=== PATIENT | male | born 1950 | race Caucasian/White ===

== ENCOUNTER 2021-03-23 08:35 | Emergency (ER) | payer MEDICARE, OTHER ==
[2021-03-23] MEDS ORDERED: Sodium Chloride 0.9% 10 ML Syringe FLUSH PRN (08:58)
[2021-03-23] MEDS ORDERED: Sodium Chloride 0.9% 1,000 ML IV SCH (09:00)
--- NOTE | 2021-03-23 09:24 | EDM.PDOC ---
<Willie Coleman - Last Filed: 03/23/21 10:19> ED HPI GENERAL MEDICAL PROBLEM - General Chief Complaint: Respiratory Problem Stated Complaint: SOB Time Seen by Provider: 03/23/21 08:54 Source of Information: Reports: Patient History Limitations: Reports: No Limitations - History of Present Illness INITIAL COMMENTS - FREE TEXT/NARRATIVE: The patient presents with shortness of breath and swollen ankles. He said this started about a week ago. He has no chest pain. He denies any palpitations but his heart rate is in the 140s and it appears irregular. He has no fever, chills, cough, congestion, runny nose, abdominal pain, nausea or vomiting. He has a history of heart disease. He had a CABG. He said he has a history of hypertension and was on medication but he was able to come off of the medication. He said the shortness of breath would come and go but mostly was there over the past week. He has never had this happen before. Onset: Gradual Duration: Week(s): Severity: Moderate Improves with: Reports: None Worsens with: Reports: None Associated Symptoms: Reports: Shortness of Breath. Denies: Chest Pain, Cough, Fever/Chills, Headaches, Nausea/Vomiting - Related Data Allergies Allergy/AdvReac Type Severity Reaction Status Date / Time No Known Allergies Allergy Verified 03/23/21 08:47 Home Meds: Home Meds . [No Known Home Meds] 03/23/21 [History] ED ROS GENERAL - Review of Systems Review Of Systems: See Below Constitutional: Reports: No Symptoms HEENT: Reports: No Symptoms Respiratory: Reports: Shortness of Breath. Denies: Cough Cardiovascular: Reports: Edema. Denies: Chest Pain, Palpitations Endocrine: Reports: No Symptoms GI/Abdominal: Reports: No Symptoms : Reports: No Symptoms Musculoskeletal: Reports: No Symptoms ED EXAM, GENERAL - Physical Exam Exam: See Below Exam Limited By: No Limitations General Appearance: Alert, No Apparent Distress Ears: Normal External Exam Nose: Normal Inspection Head: Atraumatic, Normocephalic Neck: Normal Inspection Respiratory/Chest: No Respiratory Distress, Lungs Clear, Normal Breath Sounds Cardiovascular: No Murmur, Tachycardia, Irregularly Irregular, Other (ankle edema) GI/Abdominal: Soft, Non-Tender, No Organomegaly, No Mass Back Exam: Normal Inspection #1 Interpretation EKG Date: 03/23/21 Time: 08:42 Rhythm: A-Fib Rate (Beats/Min): 142 [place]: LAD-Left [place] Deviation P-Wave: Absent QRS: Normal ST-T: Normal QT: Prolonged Course - Re-Assessments/Exams Free Text/Narrative Re-Assessment/Exam: 03/23/21 09:27 I ordered an IV NS at 125mL/hr, cardizem 10mg IV bolus, then cardizem drip at 10mg/hr, EKG, CXR and labs. His EKG shows atrial fibrillation with no acute changes. 03/23/21 10:16 His CXR shows cardiomegaly. His WBC was slightly elevated at 9.33. His anion gap is elevated at 22. His creatinine is elevated at 2.7. His glucose is elevated at 135. His total bili is elevated at 2.1. His troponin is elevated at 0.292. His TSH is negative. 03/23/21 10:19 I called [facility] Funes and Dr Awad will be calling me back. It is change of shift. Dr Allen to take over. Departure - Departure Disposition: DC/Tfer to [facility] 02 Clinical Impression: Atrial fibrillation with RVR, Elevated troponin, Renal insufficiency - Discharge Information Referrals: PCP,None [Primary Care Provider] - Forms: ED Department Discharge Sepsis Event Note (ED) - Evaluation Sepsis Screening Result: No Definite Risk <Abhishek Allen - Last Filed: 03/23/21 11:44> Course - Vital Signs Last Recorded V/S: Last Vital Signs Temp 97.8 F 03/23/21 08:44 Pulse 155 H 03/23/21 08:44 Resp 16 03/23/21 08:44 BP 161/127 H 03/23/21 08:44 Pulse Ox 99 03/23/21 08:44 - Orders/Labs/Meds Orders: Active Orders 24 hr Category Date Time Status Cardiac Monitoring [RC] . DIRECTED Care 03/23/21 08:58 Active EKG Documentation Completion [RC] STAT Care 03/23/21 08:59 Active Peripheral IV Care [RC] . DIRECTED Care 03/23/21 08:59 Active TROPONIN I [CHEM] Stat Lab 03/23/21 11:29 Received Diltiazem [Cardizem] 100 mg Med 03/23/21 10:30 Active Sodium Chloride 0.9% [Normal Saline] 100 ml IV TITRATE Sodium Chloride 0.9% [Normal Saline] 1,000 ml Med 03/23/21 09:00 Active IV ASDIRECTED Sodium Chloride 0.9% [Saline Flush] Med 03/23/21 08:58 Active 10 ml FLUSH ASDIRECTED PRN Peripheral IV Insertion Adult [OM.PC] Stat Oth 03/23/21 08:58 Ordered Medication Orders Sodium Chloride (Normal Saline) 1,000 mls @ 125 mls/hr IV ASDIRECTED SUZAN Last Admin: 03/23/21 09:12 Dose: 125 mls/hr Documented by: ALTON Diltiazem HCl 100 mg/ Sodium (Chloride) 100 mls @ 10 mls/hr IV TITRATE SUZAN; Protocol Last Admin: 03/23/21 10:49 Dose: 10 mg/hr, 10 mls/hr Documented by: GAYLA Sodium Chloride (Sodium Chloride 0.9% 10 Ml Syringe) 10 ml FLUSH ASDIRECTED PRN PRN Reason: Keep Vein Open Last Admin: 03/23/21 09:12 Dose: 10 ml Documented by: ALTON Labs: Laboratory Tests 03/23/21 03/23/21 03/23/21 Range/Units 08:50 08:50 08:50 WBC 9.33 H (4.23-9.07) K/mm3 RBC 4.32 L (4.63-6.08) M/mm3 Hgb 14.0 (13.7-17.5) gm/dl Hct 40.9 (40.1-51.0) % MCV 94.7 H (79.0-92.2) fl MCH 32.4 H (25.7-32.2) pg MCHC 34.2 (32.2-35.5) g/dl RDW Std Deviation 45.5 H (35.1-43.9) fL Plt Count 138 L (163-337) K/mm3 MPV 10.3 (9.4-12.3) fl Neut % (Auto) 86.5 H (34.0-67.9) % Lymph % (Auto) 8.7 L (21.8-53.1) % [place] % (Auto) 4.4 L (5.3-12.2) % Eos % (Auto) 0 L (0.8-7.0) Baso % (Auto) 0.3 (0.1-1.2) % Neut # (Auto) 8.07 H (1.78-5.38) K/mm3 Lymph # (Auto) 0.81 L (1.32-3.57) K/mm3 [place] # (Auto) 0.41 (0.30-0.82) K/mm3 Eos # (Auto) 0.00 L (0.04-0.54) K/mm3 Baso # (Auto) 0.03 (0.01-0.08) K/mm3 Manual Slide Review Normal smear Sodium 138 (136-145) mEq/L Potassium 4.0 (3.5-5.1) mEq/L Chloride 101 (98-107) mEq/L Carbon Dioxide 19 L (21-32) mEq/L Anion Gap 22.0 H (5-15) BUN 41 H (7-18) mg/dL Creatinine 2.7 H (0.7-1.3) mg/dL Est Cr Clr Drug Dosing 26.13 mL/min Estimated GFR (MDRD) 23 (>60) mL/min BUN/Creatinine Ratio 15.2 (14-18) Glucose 135 H (70-99) mg/dL Calcium 8.7 (8.5-10.1) mg/dL Magnesium 1.7 L (1.8-2.4) mg/dL Total Bilirubin 2.1 H (0.2-1.0) mg/dL AST 34 (15-37) U/L ALT 44 (16-63) U/L Alkaline Phosphatase 72 (46-116) U/L Troponin I 0.292 H* (0.00-0.056) ng/mL NT-Pro-B Natriuret Pep > 61183 H (0-125) pg/mL Total Protein 6.9 (6.4-8.2) g/dl Albumin 3.9 (3.4-5.0) g/dl Globulin 3.0 gm/dL Albumin/Globulin Ratio 1.3 (1-2) TSH 3rd Generation 1.754 (0.358-3.74) uIU/mL SARS-CoV-2 RNA (ANI) (NEGATIVE) 03/23/21 Range/Units 09:12 WBC (4.23-9.07) K/mm3 RBC (4.63-6.08) M/mm3 Hgb (13.7-17.5) gm/dl Hct (40.1-51.0) % MCV (79.0-92.2) fl MCH (25.7-32.2) pg MCHC (32.2-35.5) g/dl RDW Std Deviation (35.1-43.9) fL Plt Count (163-337) K/mm3 MPV (9.4-12.3) fl Neut % (Auto) (34.0-67.9) % Lymph % (Auto) (21.8-53.1) % [place] % (Auto) (5.3-12.2) % Eos % (Auto) (0.8-7.0) Baso % (Auto) (0.1-1.2) % Neut # (Auto) (1.78-5.38) K/mm3 Lymph # (Auto) (1.32-3.57) K/mm3 [place] # (Auto) (0.30-0.82) K/mm3 Eos # (Auto) (0.04-0.54) K/mm3 Baso # (Auto) (0.01-0.08) K/mm3 Manual Slide Review Sodium (136-145) mEq/L Potassium (3.5-5.1) mEq/L Chloride (98-107) mEq/L Carbon Dioxide (21-32) mEq/L Anion Gap (5-15) BUN (7-18) mg/dL Creatinine (0.7-1.3) mg/dL Est Cr Clr Drug Dosing mL/min Estimated GFR (MDRD) (>60) mL/min BUN/Creatinine Ratio (14-18) Glucose (70-99) mg/dL Calcium (8.5-10.1) mg/dL Magnesium (1.8-2.4) mg/dL Total Bilirubin (0.2-1.0) mg/dL AST (15-37) U/L ALT (16-63) U/L Alkaline Phosphatase (46-116) U/L Troponin I (0.00-0.056) ng/mL NT-Pro-B Natriuret Pep (0-125) pg/mL Total Protein (6.4-8.2) g/dl Albumin (3.4-5.0) g/dl Globulin gm/dL Albumin/Globulin Ratio (1-2) TSH 3rd Generation (0.358-3.74) uIU/mL SARS-CoV-2 RNA (ANI) Negative (NEGATIVE) Meds: Medications Generic Name Dose Route Start Last Admin Trade Name Freq PRN Reason Stop Dose Admin Sodium Chloride 1,000 mls @ 125 mls/hr 03/23/21 09:00 03/23/21 09:12 Normal Saline IV 125 mls/hr ASDIRECTED SUZAN Administration Diltiazem HCl 100 mg/ Sodium 100 mls @ 10 mls/hr 03/23/21 10:30 03/23/21 10:49 Chloride IV 10 mg/hr TITRATE SUZAN 10 mls/hr Administration Protocol 10 MG/HR Sodium Chloride 10 ml 03/23/21 08:58 03/23/21 09:12 Sodium Chloride 0.9% 10 Ml Syringe FLUSH 10 ml ASDIRECTED PRN Administration Keep Vein Open Discontinued Medications Generic Name Dose Route Start Last Admin Trade Name Freq PRN Reason Stop Dose Admin Aspirin 324 mg 03/23/21 10:07 03/23/21 10:45 Aspirin 81 Mg Tab.Chew PO 03/23/21 10:08 324 mg ONETIME ONE Administration Diltiazem HCl 10 mg 03/23/21 10:27 03/23/21 10:46 Diltiazem 50 Mg/10 Ml Sdv IVPUSH 03/23/21 10:28 10 mg ONETIME ONE Administration - Re-Assessments/Exams Free Text/Narrative Re-Assessment/Exam: 03/23/21 10:41. Have assumed care from Dr Coleman. I agree with his hx and exam as documented. I have also examined patient. Still waiting to hear from Dr Awad. 03/23/21 11:10. Dr Awad is recomending transfer to their hospital. Have discussed with Dr Roy, Hospitalist insurance healthcare consultant who does accept patient in transfer. Will continue diltiazam drip at 10 mg /hr. He is resting comfortably pain free at this time. BP is good, rate down to the mid 80's to low 90's. Departure - Departure Time of Disposition: 20:00 Condition: Fair Sepsis Event Note (ED) - Focused Exam Vital Signs: Vital Signs Temp Pulse Resp BP Pulse Ox 03/23/21 08:44 97.8 F 155 H 16 161/127 H 99 - My Orders Last 24 Hours: My Active Orders 03/23/21 11:29 TROPONIN I [CHEM] Stat - Assessment/Plan Last 24 Hours: My Active Orders 03/23/21 11:29 TROPONIN I [CHEM] Stat
[2021-03-23] MEDS ORDERED: Aspirin 81 MG Tab.Chew PO ONE (10:07)
[2021-03-23] MEDS ORDERED: Diltiazem 50 MG/10 ML SDV IVPUSH ONE (10:27)
[2021-03-23] MEDS ORDERED: Diltiazem 100 MG in Sodium Chloride 0.9% 100 ML IV SCH (10:30)
--- NOTE | 2021-03-23 10:49 | CR ---
Chest: Portable view of the chest was obtained. Comparison: No prior chest imaging is available. Heart is enlarged. Sternotomy is noted. Pulmonary vessels are minimally congested. Lungs otherwise are clear. No acute osseous abnormality is appreciated. Impression: 1. Findings are suspicious for mild CHF. Diagnostic code #3
== END 2021-03-23 12:15 ==
LOC: JD.ED 08:35
DX: I48.91 Unspecified atrial fibrillation (principal); R79.89 Other specified abnormal findings of blood chemistry; N28.9 Disorder of kidney and ureter, unspecified; Z20.822 Contact with and (suspected) exposure to COVID-19
CPT/HCPCS: 36415; 71045; 80053; 83735; 83880; 84443; 84484; 85025; 93005; 96365; 96366; 99285; A9270; J3490; J7030; U0002; 93010; 99284

== ENCOUNTER 2021-08-24 08:45 | Emergency (ER) | payer MEDICARE ==
--- NOTE | 2021-08-24 09:07 | EDM.PDOC ---
<Dell Diehl - Last Filed: 08/24/21 21:19> ED HPI GENERAL MEDICAL PROBLEM - General Chief Complaint: CPR in Progress Stated Complaint: [facility] Time Seen by Provider: 08/24/21 09:06 - Related Data Allergies Allergy/AdvReac Type Severity Reaction Status Date / Time Penicillins Allergy Other Verified 08/24/21 12:05 Home Meds: Home Meds Apixaban [Eliquis] 5 mg PO BID 08/24/21 [History] Furosemide 20 mg PO Q48H 08/24/21 [History] Furosemide 40 mg PO Q48H 08/24/21 [History] Losartan [Cozaar] 25 mg PO DAILY 08/24/21 [History] Metoprolol Tartrate 75 mg PO TID 08/24/21 [History] Rosuvastatin [Crestor] 5 mg PO DAILY 08/24/21 [History] Spironolactone [Aldactone] 25 mg PO DAILY 08/24/21 [History] amLODIPine [Norvasc] 5 mg PO DAILY 08/24/21 [History] Course - Re-Assessments/Exams Free Text/Narrative Re-Assessment/Exam: 08/24/21 21:19 Patient is a 71-year-old male received at signout after syncopal episode and found to have hyperkalemia. Patient was reevaluated at bedside. Patient is comfortable has no complaints at this time other than dry mouth. Laboratory studies as well as imaging reviewed. Concerns about significant hyperkalemia. Also concerns about significant worsening of renal function. Acute kidney injury on chronic kidney disease. I updated patient and sister regards to plan of care as well as likelihood that patient would remain in the emergency room overnight given shortages and bed availability. We will plan on continuing IV fluids at a slow rate given patient's underlying heart failure. We will observe the patient in the ER overnight and repeat labs in the morning. Departure - Departure Disposition: Home, Self-Care 01 Clinical Impression: Hyperkalemia, Renal failure, Syncope and collapse - Discharge Information Referrals: Martinez Rodríguez NP [Primary Care Provider] - Forms: ED Department Discharge Additional Instructions: Return to the emergency room with any questions problems or worsening symptoms. Follow-up with your regular healthcare provider this week have follow-up labs obtained. You need to be referred to nephrology for further evaluation of your declining kidney function. Discussed this with your regular healthcare provider. Follow-up with your documentation nurse at [facility] in [place] preferably this week. Discuss if you would benefit from a internal defibrillator. We have stopped some of your medications. The medications you should take include the Eliquis 5 mg twice daily. The metoprolol 75 mg 3 times daily as before the rosuvastatin 5 mg 1 daily, and the furosemide 20 mg, 1 tablet, every other day and 40 mg, 2 tablets, every other day. <EdilbertoSamuel Joesph - Last Filed: 08/25/21 08:36> ED HPI GENERAL MEDICAL PROBLEM - History of Present Illness INITIAL COMMENTS - FREE TEXT/NARRATIVE: 71-year-old male presents the emergency room brought in by EMS after having some uncertain episode, but CPR was started. The patient had an episode this morning where he felt lightheaded and then does not remember what happened after that. His niece was there and called 911 the police arrived to before EMS and started CPR shortly after this the patient had a big gasp and was awake. I have no other history on this. EMS arrived found the patient to be alert and oriented cooperative talkative and in no acute distress. He was transferred here. At this point the patient has some chest discomfort when he changes positions basically where he got compressions. The patient has not had episodes like this in the past. Patient was instructed by his primary care provider to stop his potassium about a week ago. Other than this he has had no significant medication changes. He has a history of rheumatic fever and has nonoperable aortic valve disease. He has atrial fibrillation and reported EF of 20%. He is on Eliquis. Past Medical History Cardiovascular History: Reports: Hypertension - Past Surgical History Other Oncologic Surgeries/Procedures: had a mass removed from his chest in 1987 ED ROS GENERAL - Review of Systems Review Of Systems: See Below Constitutional: Reports: No Symptoms HEENT: Reports: No Symptoms Respiratory: Reports: No Symptoms Cardiovascular: Reports: Chest Pain (Seems to be rib and chest wall pain secondary to CPR), Syncope GI/Abdominal: Reports: No Symptoms : Reports: No Symptoms Musculoskeletal: Reports: Other (Chest wall pain secondary to CPR) Skin: Reports: No Symptoms Neurological: Reports: No Symptoms Psychiatric: Reports: No Symptoms ED EXAM, GENERAL - Physical Exam Exam: See Below Exam Limited By: No Limitations General Appearance: Alert, No Apparent Distress Eye Exam: Bilateral Eye: Normal Inspection, PERRL Throat/Mouth: Normal Inspection, Normal Lips, Normal Gums, Normal Oropharynx, Normal Voice, No Airway Compromise Head: Atraumatic, Normocephalic Neck: Normal Inspection, Supple, Non-Tender, Full Range of Motion Respiratory/Chest: No Respiratory Distress, Lungs Clear, Normal Breath Sounds Cardiovascular: No Edema, Systolic Murmur (He has a coarse holosystolic murmur heard throughout the chest but best along the right upper sternal border), Irregularly Irregular GI/Abdominal: Normal Bowel Sounds, Soft, Non-Tender Back Exam: Normal Inspection. No: CVA Tenderness (L), CVA Tenderness (R) Extremities: Normal Inspection, Pedal Edema (Scant pretibial edema right a little more than the left. According to the patient his edema is getting a lot better after starting the Lasix.) Neurological: Alert, Oriented, Normal Cognition #1 Interpretation EKG Date: 08/24/21 Rhythm: A-Fib Rate (Beats/Min): 65 [place]: LAD-Left [place] Deviation P-Wave: Absent QRS: Normal ST-T: Other (Specific nondiagnostic changes inverted T waves in aVL nonspecific ST changes inferior deep inverted T waves in V3 to a lesser degree V4 5 and 6) QT: Prolonged (Borderline) Comparison: Change From Previous EKG (Patient has more prominent T waves inversion and deeper T waves compared to 03/18/2021) Course - Vital Signs Last Recorded V/S: Last Vital Signs Temp 35.7 C L 08/25/21 07:10 Pulse 81 08/25/21 07:10 Resp 18 08/25/21 07:10 BP 124/84 08/25/21 07:10 Pulse Ox 95 08/25/21 07:10 - Orders/Labs/Meds Orders: Active Orders 24 hr Category Date Time Status Blood Glucose Check, Bedside [RC] ONETIME Care 08/24/21 10:32 Active Labs: Laboratory Tests 08/24/21 08/24/21 08/24/21 Range/Units 09:40 09:40 11:16 WBC 7.28 (4.23-9.07) K/mm3 RBC 4.58 L (4.63-6.08) M/mm3 Hgb 14.9 (13.7-17.5) gm/dl Hct 44.4 (40.1-51.0) % MCV 96.9 H (79.0-92.2) fl MCH 32.5 H (25.7-32.2) pg MCHC 33.6 (32.2-35.5) g/dl RDW Std Deviation 45.9 H (35.1-43.9) fL Plt Count 192 (163-337) K/mm3 MPV 9.6 (9.4-12.3) fl Neut % (Auto) 63.9 (34.0-67.9) % Lymph % (Auto) 23.6 (21.8-53.1) % [place] % (Auto) 9.9 (5.3-12.2) % Eos % (Auto) 2.1 (0.8-7.0) Baso % (Auto) 0.4 (0.1-1.2) % Neut # (Auto) 4.65 (1.78-5.38) K/mm3 Lymph # (Auto) 1.72 (1.32-3.57) K/mm3 [place] # (Auto) 0.72 (0.30-0.82) K/mm3 Eos # (Auto) 0.15 (0.04-0.54) K/mm3 Baso # (Auto) 0.03 (0.01-0.08) K/mm3 Sodium 134 L (136-145) mEq/L Potassium 6.8 H* D (3.5-5.1) mEq/L Chloride 102 (98-107) mEq/L Carbon Dioxide 23 (21-32) mEq/L Anion Gap 15.8 H (5-15) BUN 65 H (7-18) mg/dL Creatinine 3.4 H (0.7-1.3) mg/dL Est Cr Clr Drug Dosing 20.58 mL/min Estimated GFR (MDRD) 18 (>60) mL/min BUN/Creatinine Ratio 19.1 H (14-18) Glucose 220 H (70-99) mg/dL POC Glucose 242 H (70-99) mg/dL Calcium 9.0 (8.5-10.1) mg/dL Total Bilirubin 0.9 (0.2-1.0) mg/dL AST 16 (15-37) U/L ALT 14 L (16-63) U/L Alkaline Phosphatase 84 (46-116) U/L Troponin I < 0.017 (0.00-0.056) ng/mL Total Protein 7.4 (6.4-8.2) g/dl Albumin 3.7 (3.4-5.0) g/dl Globulin 3.7 gm/dL Albumin/Globulin Ratio 1.0 (1-2) SARS-CoV-2 RNA (ANI) (NEGATIVE) 08/24/21 08/24/21 08/24/21 Range/Units 13:27 14:46 15:05 WBC (4.23-9.07) K/mm3 RBC (4.63-6.08) M/mm3 Hgb (13.7-17.5) gm/dl Hct (40.1-51.0) % MCV (79.0-92.2) fl MCH (25.7-32.2) pg MCHC (32.2-35.5) g/dl RDW Std Deviation (35.1-43.9) fL Plt Count (163-337) K/mm3 MPV (9.4-12.3) fl Neut % (Auto) (34.0-67.9) % Lymph % (Auto) (21.8-53.1) % [place] % (Auto) (5.3-12.2) % Eos % (Auto) (0.8-7.0) Baso % (Auto) (0.1-1.2) % Neut # (Auto) (1.78-5.38) K/mm3 Lymph # (Auto) (1.32-3.57) K/mm3 [place] # (Auto) (0.30-0.82) K/mm3 Eos # (Auto) (0.04-0.54) K/mm3 Baso # (Auto) (0.01-0.08) K/mm3 Sodium (136-145) mEq/L Potassium (3.5-5.1) mEq/L Chloride (98-107) mEq/L Carbon Dioxide (21-32) mEq/L Anion Gap (5-15) BUN (7-18) mg/dL Creatinine (0.7-1.3) mg/dL Est Cr Clr Drug Dosing mL/min Estimated GFR (MDRD) (>60) mL/min BUN/Creatinine Ratio (14-18) Glucose (70-99) mg/dL POC Glucose 103 H 110 H (70-99) mg/dL Calcium (8.5-10.1) mg/dL Total Bilirubin (0.2-1.0) mg/dL AST (15-37) U/L ALT (16-63) U/L Alkaline Phosphatase (46-116) U/L Troponin I (0.00-0.056) ng/mL Total Protein (6.4-8.2) g/dl Albumin (3.4-5.0) g/dl Globulin gm/dL Albumin/Globulin Ratio (1-2) SARS-CoV-2 RNA (ANI) Negative (NEGATIVE) 08/24/21 08/24/21 08/24/21 Range/Units 16:45 16:46 19:35 WBC (4.23-9.07) K/mm3 RBC (4.63-6.08) M/mm3 Hgb (13.7-17.5) gm/dl Hct (40.1-51.0) % MCV (79.0-92.2) fl MCH (25.7-32.2) pg MCHC (32.2-35.5) g/dl RDW Std Deviation (35.1-43.9) fL Plt Count (163-337) K/mm3 MPV (9.4-12.3) fl Neut % (Auto) (34.0-67.9) % Lymph % (Auto) (21.8-53.1) % [place] % (Auto) (5.3-12.2) % Eos % (Auto) (0.8-7.0) Baso % (Auto) (0.1-1.2) % Neut # (Auto) (1.78-5.38) K/mm3 Lymph # (Auto) (1.32-3.57) K/mm3 [place] # (Auto) (0.30-0.82) K/mm3 Eos # (Auto) (0.04-0.54) K/mm3 Baso # (Auto) (0.01-0.08) K/mm3 Sodium 137 136 (136-145) mEq/L Potassium 5.1 D 5.0 (3.5-5.1) mEq/L Chloride 103 102 (98-107) mEq/L Carbon Dioxide 23 21 (21-32) mEq/L Anion Gap 16.1 H 18.0 H (5-15) BUN 65 H 64 H (7-18) mg/dL Creatinine 3.4 H 3.4 H (0.7-1.3) mg/dL Est Cr Clr Drug Dosing 20.58 20.58 mL/min Estimated GFR (MDRD) 18 18 (>60) mL/min BUN/Creatinine Ratio 19.1 H 18.8 H (14-18) Glucose 114 H 126 H (70-99) mg/dL POC Glucose 119 H (70-99) mg/dL Calcium 9.5 9.5 (8.5-10.1) mg/dL Total Bilirubin (0.2-1.0) mg/dL AST (15-37) U/L ALT (16-63) U/L Alkaline Phosphatase (46-116) U/L Troponin I (0.00-0.056) ng/mL Total Protein (6.4-8.2) g/dl Albumin (3.4-5.0) g/dl Globulin gm/dL Albumin/Globulin Ratio (1-2) SARS-CoV-2 RNA (ANI) (NEGATIVE) 08/25/21 08/25/21 Range/Units 05:20 05:20 WBC 7.96 (4.23-9.07) K/mm3 RBC 4.64 (4.63-6.08) M/mm3 Hgb 14.8 (13.7-17.5) gm/dl Hct 45.0 (40.1-51.0) % MCV 97.0 H (79.0-92.2) fl MCH 31.9 (25.7-32.2) pg MCHC 32.9 (32.2-35.5) g/dl RDW Std Deviation 46.7 H (35.1-43.9) fL Plt Count 169 (163-337) K/mm3 MPV 9.6 (9.4-12.3) fl Neut % (Auto) 65.3 (34.0-67.9) % Lymph % (Auto) 19.1 L (21.8-53.1) % [place] % (Auto) 13.8 H (5.3-12.2) % Eos % (Auto) 1.4 (0.8-7.0) Baso % (Auto) 0.3 (0.1-1.2) % Neut # (Auto) 5.20 (1.78-5.38) K/mm3 Lymph # (Auto) 1.52 (1.32-3.57) K/mm3 [place] # (Auto) 1.10 H (0.30-0.82) K/mm3 Eos # (Auto) 0.11 (0.04-0.54) K/mm3 Baso # (Auto) 0.02 (0.01-0.08) K/mm3 Sodium 137 (136-145) mEq/L Potassium 4.4 (3.5-5.1) mEq/L Chloride 102 (98-107) mEq/L Carbon Dioxide 26 (21-32) mEq/L Anion Gap 13.4 (5-15) BUN 58 H (7-18) mg/dL Creatinine 3.2 H (0.7-1.3) mg/dL Est Cr Clr Drug Dosing 21.86 mL/min Estimated GFR (MDRD) 19 (>60) mL/min BUN/Creatinine Ratio 18.1 H (14-18) Glucose 102 H (70-99) mg/dL POC Glucose (70-99) mg/dL Calcium 9.1 (8.5-10.1) mg/dL Total Bilirubin 1.3 H (0.2-1.0) mg/dL AST 15 (15-37) U/L ALT 17 (16-63) U/L Alkaline Phosphatase 84 (46-116) U/L Troponin I (0.00-0.056) ng/mL Total Protein 7.3 (6.4-8.2) g/dl Albumin 3.7 (3.4-5.0) g/dl Globulin 3.6 gm/dL Albumin/Globulin Ratio 1.0 (1-2) SARS-CoV-2 RNA (ANI) (NEGATIVE) Meds: Medications Discontinued Medications Generic Name Dose Route Start Last Admin Trade Name Freq PRN Reason Stop Dose Admin Calcium Gluconate 1 gm 08/24/21 10:31 08/24/21 10:40 Calcium Gluconate 10% 1 Gm/10 Ml Sdv IVPUSH 08/24/21 10:32 1 gm ONETIME ONE Administration Dextrose/Water 50 ml 08/24/21 10:34 08/24/21 10:46 50% Dextrose In Water 50 Ml Syringe IVPUSH 08/24/21 10:35 50 ml ASDIRECTED ONE Administration Furosemide 60 mg 08/24/21 10:39 08/24/21 11:20 Furosemide 40 Mg/4 Ml Vial IVPUSH 08/24/21 10:40 60 mg NOW ONE Administration Sodium Chloride 1,000 mls @ 100 mls/hr 08/24/21 15:30 Normal Saline IV ASDIRECTED SUZAN Sodium Chloride 1,000 mls @ 999 mls/hr 08/24/21 15:38 08/24/21 20:00 Normal Saline IV 08/24/21 16:38 Not Given ONETIME ONE Sodium Chloride 500 mls @ 999 mls/hr 08/24/21 15:42 08/24/21 15:44 Normal Saline IV 08/24/21 16:12 999 mls/hr .BOLUS ONE Administration Sodium Chloride 500 mls @ 999 mls/hr 08/24/21 17:49 08/24/21 20:00 Normal Saline IV 08/24/21 18:19 Not Given .BOLUS ONE Insulin Human Regular 10 unit 08/24/21 10:32 08/24/21 10:45 Insulin Regular, Human 100 Units/Ml 3 Ml Vial IV 08/24/21 10:33 10 unit ONETIME ONE Administration Metoprolol Succinate 25 mg 08/24/21 15:41 08/24/21 20:00 Metoprolol Succinate 25 Mg Tab.Er PO 08/24/21 15:42 Not Given ONETIME ONE Morphine Sulfate 4 mg 08/24/21 21:04 08/24/21 21:11 Morphine 4 Mg/Ml Syringe IVPUSH 08/24/21 21:05 4 mg ONETIME ONE Administration Sodium Polystyrene Sulfonate 30 gm 08/24/21 15:52 08/24/21 16:49 Sodium Polystyrene Sulfonate 15 Gm/60 Ml Susp 60 Ml Bot PO 08/24/21 15:53 30 gm ONETIME ONE Administration - Re-Assessments/Exams Free Text/Narrative Re-Assessment/Exam: 08/24/21 10:36 Notified by lab that the patient's potassium was 6.8. Patient has received calcium gluconate 1000 mg bolus 10 units regular insulin followed by an amp of glucose. His blood sugar was 240 we will not start a D10 drip yet but will keep a close eye on his blood sugars. We will give some IV Lasix as well. 08/24/21 15:[address] Manzano documentation nurse at [facility] in [place] he recommended transfer but this is just not an option. He then recommended that we stop the spironolactone the ARB therapy start him on Toprol we will start 25 Case was then discussed with Dr. Luis on-call golf starter and ranger at [facility] in [place] he recommended normal saline and perhaps even more Lasix. As well as 30 g of Kayexalate. Follow kidney function and labs to make sure they are going in the right direction. 08/24/21 19:27 It is change of shift labs look better Case reviewed with Dr. Diehl who will assume care Free Text/Narrative Re-Assessment/Exam: 08/25/21 08:29 This morning the patient is doing well and is eager to go home. Labs show minimal improvement in his kidney function however his potassium is stable. I discussed the situation with the patient and we will discharge home. I have stressed the importance of him following up with his heart doctor as soon as possible and he needs to be arranged to see nephrology as soon as possible as well. Medications will be adjusted to have him taking his Eliquis as before his metoprolol 75 mg 3 times daily as before his Crestor 5 mg as before and his Lasix 20 mg every other day and 40 mg every other day as before. Departure - Departure Time of Disposition: 08:30 Sepsis Event Note (ED) - Evaluation Sepsis Screening Result: No Definite Risk - Focused Exam Vital Signs: Vital Signs Temp Pulse Resp BP Pulse Ox 08/25/21 07:10 35.7 C L 81 18 124/84 95 - My Orders Last 24 Hours: My Active Orders 08/24/21 10:32 Blood Glucose Check, Bedside [RC] ONETIME - Assessment/Plan Last 24 Hours: My Active Orders 08/24/21 10:32 Blood Glucose Check, Bedside [RC] ONETIME
--- NOTE | 2021-08-24 09:55 | CR ---
Chest: Portable view of the chest was obtained. Comparison: Prior chest x-ray of 08/11/21. Heart is enlarged. Tortuous thoracic aorta is seen. Prior sternotomy is noted. Lungs show no acute parenchymal change. Bony structures are osteopenic and show nothing acute. Impression: 1. Cardiomegaly and other chronic findings. 2. Nothing acute is otherwise seen. Diagnostic code #2
[2021-08-24] MEDS ORDERED: Calcium Gluconate 10% 1 GM/10 ML SDV IVPUSH ONE (10:31)
[2021-08-24] MEDS ORDERED: Insulin Regular, Human 100 Units/ML 3 ML Vial IV ONE (10:32)
[2021-08-24] MEDS ORDERED: 50% Dextrose in Water 50 ML Syringe IVPUSH ONE (10:34)
[2021-08-24] MEDS ORDERED: Furosemide 40 MG/4 ML VIAL IVPUSH ONE (10:39)
[2021-08-24] MEDS ORDERED: Sodium Chloride 0.9% 1,000 ML IV SCH (15:30)
[2021-08-24] MEDS ORDERED: Sodium Chloride 0.9% 1,000 ML IV ONE (15:38)
[2021-08-24] MEDS ORDERED: Metoprolol Succinate 25 MG Tab.ER PO ONE (15:41)
[2021-08-24] MEDS ORDERED: Sodium Chloride 0.9% 500 ML IV ONE ×2 (15:42→17:49)
[2021-08-24] MEDS ORDERED: Sodium Polystyrene Sulfonate 15 GM/60 ML Susp 60 ML Bot PO ONE (15:52)
[2021-08-24] MEDS ORDERED: Morphine 4 MG/ML Syringe IVPUSH ONE (21:04)
== END 2021-08-25 10:10 | disposition home or self-care (01) ==
LOC: SUPCPDRO 08:45 → JD.ED 08:45
DX: R55 Syncope and collapse (principal); E87.5 Hyperkalemia; N19 Unspecified kidney failure; I10 Essential (primary) hypertension; I48.91 Unspecified atrial fibrillation; Z88.0 Allergy status to penicillin; Z79.01 Long term (current) use of anticoagulants; Z79.899 Other long term (current) drug therapy; Z20.822 Contact with and (suspected) exposure to COVID-19
CPT/HCPCS: 36415; 71045; 80048; 80053; 82947; 84484; 85025; 92950; 93005; 96374; 96375; 99285; A9270; J0610; J1815; J1940; J2270; J7030; U0002

== ENCOUNTER 2024-02-24 12:42 | Inpatient (IN) | payer MEDICARE ==
[2024-02-24] MEDS: Norepinephrine 4 MG in Dextrose 5% in Water 246 ML IV SCH (13:00)
[2024-02-24 13:15] LABS: BASOPHILS PERCENT AUTO 0.1 % (0.0-1.0); HEMATOCRIT 49.3 % (42.0-52.0); HEMOGLOBIN 16.8 gm/dl (14.0-18.0); IMMATURE GRAN ABSOLUTE AUTO 0.03 K/mm3 (0.00-0.05); IMMATURE GRAN PERCENT AUTO 0.3 % (0.0-0.4); LYMPHOCYTES ABSOLUTE AUTO 0.7 K/mm3 (1.0-4.8); LYMPHOCYTES PERCENT AUTO 6.4 % (24.0-44.0); MEAN CORPUSCULAR HEMOGLOBIN 33.7 pg (28.0-32.0); MEAN CORPUSCULAR HGB CONC 34.1 g/dl (32.0-36.0); MONOCYTES ABSOLUTE AUTO 0.7 K/mm3 (0.0-0.8); MONOCYTES PERCENT AUTO 6.2 % (0.0-8.0); NEUTROPHILS ABSOLUTE AUTO 9.4 K/mm3 (1.8-7.7); PLATELET COUNT,PLT 143 K/mm3 (150-400); RED BLOOD CELL COUNT 4.98 M/mm3 (4.52-5.90); WHITE BLOOD CELL COUNT,WBC 10.79 K/mm3 (3.9-11.3)
[2024-02-24] MEDS ORDERED: Sodium Chloride 0.9% 100 ML IV SCH (13:15)
[2024-02-24 13:32] LABS: INR 1.11; PROTHROMBIN TIME 11.8 SECONDS (9.7-12.0)
[2024-02-24 13:34] LABS: PTT,PARTIAL THROMBOPLSTIN TIME 30.8 SECONDS (21.7-31.4)
[2024-02-24] MEDS: Sodium Chloride 0.9% 10 ML Syringe FLUSH PRN (13:36)
[2024-02-24] MEDS: Iopamidol 755 Mg/ML 100 ML Bottle IVPUSH ONE (13:36)
[2024-02-24 13:41] LABS: ALANINE AMINOTRANSFERASE,ALT 21 U/L (16-63); ALBUMIN 3.4 g/dl (3.4-5.0); ALKALINE PHOSPHATASE 84 U/L (46-116); ANION GAP 20.9 (5-15); ASPARTATE AMNIOTRANSFERASE,AST 116 U/L (15-37); BILIRUBIN TOTAL 1.2 mg/dL (0.2-1.0); BLOOD UREA NITROGEN,BUN 44 mg/dL (7-18); BUN/CREATININE RATIO 18.3 (14-18); CALCIUM 8.7 mg/dL (8.5-10.1); CHLORIDE,CL 107 mEq/L (98-107); CREATININE 2.4 mg/dL (0.7-1.3); ESTIMATED GFR 28 mL/min (>60); GLUCOSE RANDOM 178 mg/dL (70-99); PROTEIN TOTAL,TP 6.8 g/dl (6.4-8.2); SODIUM,NA 143 mEq/L (136-145)
[2024-02-24 14:04] LABS: BASE EXCESS ARTERIAL -12.6 (-2-2.0); BICARBONATE,ARTERIAL 17.1 meq/L (22.0-26.0); O2 SATURATION ARTERIAL 96.4 % (96.0-97.0)
[2024-02-24 14:05] LABS: BASE EXCESS ARTERIAL -10.5 (-2-2.0); BICARBONATE,ARTERIAL 18.6 meq/L (22.0-26.0); PCO2 ARTERIAL 53.4 mmHg (35.0-45.0)
[2024-02-24 14:14] LABS: TROPONIN I HIGH SENSITIVITY 42895 pg/mL (<=76)
[2024-02-24 14:15] LABS: CARBON DIOXIDE,CO2 19 mEq/L (21-32); POTASSIUM,K 3.9 mEq/L (3.5-5.1)
[2024-02-24 14:23] LABS: APPEARANCE,URINE CLEAR (Clear); BILIRUBIN,URINE NEGATIVE (Negative); COLOR,URINE YELLOW (Yellow); GLUCOSE,URINE TRACE (Negative); KETONES,URINE NEGATIVE (Negative); LEUKOCYTE ESTERASE,URINE NEGATIVE (Negative); NITRITE,URINE NEGATIVE (Negative); OCCULT BLOOD,URINE 2+ (Negative); PROTEIN,URINE 3+ (Negative); UROBILINOGEN,URINE 0.2 (0.2-1.0)
[2024-02-24 14:33] LABS: BARBITURATE SCREEN,URINE NEGATIVE (CUTOFF=200); BENZODIAZEPINES SCREEN,URINE NEGATIVE (CUTOFF=150); BUPRENORPHINE SCREEN,URINE NEGATIVE (CUTOFF=10); METHADONE SCREEN, URINE NEGATIVE (CUT0FF=200); METHAMPHETAMINES SCREEN, URINE NEGATIVE (CUTOFF=500); OXYCODONE SCREEN,URINE NEGATIVE (CUT0FF=100); THC SCREEN,URINE 20 NG/ML NEGATIVE (CUTOFF=50)
[2024-02-24 14:34] LABS: AMPHETAMINES SCREEN, URINE NEGATIVE (CUTOFF=500)
[2024-02-24] MEDS ORDERED: Morphine 4 MG/ML Syringe IVPUSH PRN (15:36)
[2024-02-24] MEDS ORDERED: Scopalamine 1mg/3day Transdermal Patch TRDERM PRN (15:37)
[2024-02-24] MEDS ORDERED: Glycopyrrolate 0.2 MG/ML SDV IVPUSH PRN (15:38)
[2024-02-24] MEDS: Morphine 10 MG/ML SDV IVPUSH PRN (16:53)
[2024-02-24] MEDS: Iopamidol 755 MG/ML 50 ML Bottle IVPUSH ONE (17:49)
[2024-02-24] MEDS: Morphine 2 MG/ML SYRINGE IVPUSH ONE (17:51)
[2024-02-24] MEDS: LORazepam 2 MG/ML SDV IVPUSH PRN (18:55)
== END 2024-02-24 18:57 | disposition expired | DRG 951 ==
LOC: JD.ED 12:42 → JD.ICU 15:07
PROVIDERS: ADMIT Student in an Organized Health Care Education/Training Program; ATTEND Student in an Organized Health Care Education/Training Program
PROC: 5A1935Z Respiratory Ventilation, Less than 24 Consecutive Hours (ICD-10-PCS; principal; 2024-02-24)
PROC: 4A133R1 Monitoring of Arterial Saturation, Peripheral, Percutaneous Approach (ICD-10-PCS; 2024-02-24)
PROC: 3E033XZ Introduction of Vasopressor into Peripheral Vein, Percutaneous Approach (ICD-10-PCS; 2024-02-24)
PROC: 0BP1XDZ Removal of Intraluminal Device from Trachea, External Approach (ICD-10-PCS; 2024-02-24)
DX: Z51.5 Encounter for palliative care (principal); I63.511 Cerebral infarction due to unspecified occlusion or stenosis of right middle cerebral artery; I21.4 Non-ST elevation (NSTEMI) myocardial infarction; J96.00 Acute respiratory failure, unspecified whether with hypoxia or hypercapnia; I48.20 Chronic atrial fibrillation, unspecified; D84.9 Immunodeficiency, unspecified; N18.4 Chronic kidney disease, stage 4 (severe); I50.20 Unspecified systolic (congestive) heart failure; I38 Endocarditis, valve unspecified; Z66 Do not resuscitate; H54.7 Unspecified visual loss; I12.9 Hypertensive chronic kidney disease with stage 1 through stage 4 chronic kidney disease, or unspecified chronic kidney disease; I95.9 Hypotension, unspecified; I48.91 Unspecified atrial fibrillation; R23.3 Spontaneous ecchymoses; I25.10 Atherosclerotic heart disease of native coronary artery without angina pectoris; R73.03 Prediabetes; Z79.01 Long term (current) use of anticoagulants; Z79.899 Other long term (current) drug therapy; Z88.0 Allergy status to penicillin; Z98.890 Other specified postprocedural states; Z86.74 Personal history of sudden cardiac arrest; Z86.39 Personal history of other endocrine, nutritional and metabolic disease
CPT/HCPCS: 36415; 36600; 70450; 70450-26; 71045; 71045-26; 71260; 71260-26; 72125; 72125-26; 74177; 74177-26; 80053; 80306; 80307; 81003; 82803; 82947; 83605; 84484; 85025; 85610; 85730; 93005; C1758; J0282; J2060; J2270; J3490; J7060; Q9967